=== PATIENT | female | born 1980 | race Caucasian/White ===

== ENCOUNTER 2021-12-06 06:20 | Emergency (ER) | payer SELFPAY | END 2021-12-06 08:33 | disposition short-term general hospital (02) | LOC: ED 06:20 | DX: T23.301A Burn of third degree of right hand, unspecified site, initial encounter (principal); T24.201A Burn of second degree of unspecified site of right lower limb, except ankle and foot, initial encounter; T24.202A Burn of second degree of unspecified site of left lower limb, except ankle and foot, initial encounter; X08.8XXA Exposure to other specified smoke, fire and flames, initial encounter; Y93.89 Activity, other specified; Y92.89 Other specified places as the place of occurrence of the external cause; Y99.8 Other external cause status ==